=== PATIENT | male | born 1940 | race Caucasian/White ===

== ENCOUNTER 2022-09-02 13:42 | Inpatient (IN) | payer BC ==
[~2022-09-02] VITALS: Ht 170.2 cm; Wt 56.9 kg
[2022-09-02 14:46] LABS: Basophils # (auto) 0.1 10 ^3/uL (0-0.2); Basophils % (auto) 1.1 % (0.0-2.0); Eosinophils # (auto) 0.2 10 ^3/uL (0-0.8); Eosinophils % (auto) 1.9 % (0.0-7.0); Lymphocytes # (auto) 1.7 10 ^3/uL (0.4-5.4); Lymphocytes % (auto) 19.4 % (10.0-50.0); Monocytes # (auto) 0.7 10 ^3/uL (0-1.3); Nucleated Red Blood Cells % 0.1 %
[2022-09-02 14:48] LABS: Hematocrit 35.9 % (41.0-53.0); Hemoglobin 11.8 g/dL (13.5-17.5); Mean Corpuscular Hemoglobin 26.6 pg (28.0-32.0); Mean Corpuscular Hgb Conc. 32.9 g/dL (32.0-36.0); Mean Corpuscular Volume 80.8 fL (80.0-100.0); Monocytes % (auto) 7.9 % (0.0-12.0); Neutrophils % (auto) 69.7 % (37.0-80.0); Red Blood Cells 4.44 10^6/uL (4.5-5.90); Red Cell Distribution Width 15.2 % (11.8-14.3); White Blood Cell 8.7 10^3/uL (4.4-10.8)
[2022-09-02 15:09] LABS: Albumin 2.9 g/dL (3.4-5.0); BUN/Creatinine Ratio 17.4 (10.0-20.0); Calcium 8.6 mg/dL (8.5-10.1); Potassium 3.9 mmol/L (3.5-5.1)
[2022-09-02 15:12] LABS: Bilirubin, Total 0.3 mg/dL (0.2-1.0); Total Protein 6.8 g/dL (6.4-8.2)
[2022-09-02 15:13] LABS: INR 0.99 (0.9-1.15); Partial Thromboplastin Time 29.1 sec (24.6-33.4)
[2022-09-02] MEDS ORDERED: ACETAMINOPHEN 325 MG TAB PO PRN (16:45)
[2022-09-02] MEDS ORDERED: ONDANSETRON HCL 4 MG/2 ML VIAL IV PRN (16:45)
[2022-09-02] MEDS ORDERED: MORPHINE SULFATE INJ 2 MG/ml SYRG IV PRN (16:45)
[2022-09-02] MEDS ORDERED: NITROGLYCERIN 0.4 MG SL TAB SL PRN (16:45)
[2022-09-02] MEDS ORDERED: ENOXAPARIN SOD 40 MG/0.4 ML SYRINGE SC ONE (17:00)
[2022-09-02] MEDS: SODIUM CHLORIDE 0.9% 1,000 ML IV SCH (18:34)
[2022-09-02] MEDS: HYDROcodone-ACET 5/325MG TAB PO PRN ×2 (18:34→23:16)
[2022-09-02 19:53] LABS: Urine Bacteria FEW /hpf (None Seen); Urine Blood Negative /uL (Negative); Urine WBC 5 /hpf (0 - 3)
[2022-09-02] MEDS: MORPHINE SULFATE INJ 2 MG/ml SYRG IV PRN (20:59)
[2022-09-03] MEDS: SODIUM CHLORIDE 0.9% 1,000 ML IV SCH ×3 (01:05→17:27)
[2022-09-03] MEDS: MORPHINE SULFATE INJ 2 MG/ml SYRG IV PRN ×3 (01:08→10:08)
[2022-09-03] MEDS ORDERED: HYDR-4072 (03:17)
[2022-09-03 05:00] VITALS: BP 122/51
[2022-09-03 08:00] VITALS: BP 120/96
[2022-09-03 08:43] VITALS: BP 120/96
[2022-09-03] MEDS ORDERED: ENOXAPARIN SOD 40 MG/0.4 ML SYRINGE SC SCH (10:00)
[2022-09-03] MEDS ORDERED: KETAMINE 50mg/ML 10ml Vial (500mg/10ml) IV ONE (11:19)
[2022-09-03] MEDS ORDERED: PHENYLEPHRINE HCL 10 MG/ML VL IV ONE (11:19)
[2022-09-03] MEDS ORDERED: EPINEPHrine HCL 1 MG/1 ML AMP ONE (12:23)
[2022-09-03] MEDS ORDERED: BUPIVACAINE 0.25% INJ 50ML VIAL ONE (12:23)
[2022-09-03] MEDS ORDERED: ceFAZolin 1GM/50ML 100 ML IV ONE (12:55)
[2022-09-03 13:00] VITALS: BP 145/72
[2022-09-03] MEDS ORDERED: ONDANSETRON HCL 4 MG/2 ML VIAL ONE (13:06)
[2022-09-03] MEDS ORDERED: LIDOCAINE 2% (LOCAL ANESTH.) PF 5ml SDV ONE (13:06)
[2022-09-03] MEDS ORDERED: SODIUM CHLORIDE LOCK 10 ML ONE (13:06)
[2022-09-03] MEDS ORDERED: KETOROLAC TROMETH 30 MG/ML 1ML VIAL ONE (13:06)
[2022-09-03] MEDS ORDERED: DexAMETHasone SOD PHOS 10MG/1ML VIAL INJ ONE ×2 (13:06→13:19)
[2022-09-03] MEDS ORDERED: GLYCOPYRROLATE 0.2 MG/ML 1ML VIAL ONE (13:06)
[2022-09-03] MEDS ORDERED: PROPOFOL 10 MG/ML 20 ML IV ONE ×2 (13:06→13:48)
[2022-09-03 16:26] VITALS: BP 125/54
[2022-09-03] MEDS: HYDROcodone-ACET 5/325MG TAB PO PRN ×2 (17:47→21:52)
[2022-09-03] MEDS: ceFAZolin 1GM/50ML 50 ML IV SCH (21:53)
[2022-09-03 22:00] VITALS: BP 110/58
[2022-09-04] MEDS: MORPHINE SULFATE INJ 2 MG/ml SYRG IV PRN (01:50)
[2022-09-04] MEDS: SODIUM CHLORIDE 0.9% 1,000 ML IV SCH (02:05)
[2022-09-04 05:00] VITALS: BP 123/54
[2022-09-04] MEDS: ceFAZolin 1GM/50ML 50 ML IV SCH (06:23)
[2022-09-04 09:00] VITALS: BP 141/72
[2022-09-04] MEDS: HYDROcodone-ACET 5/325MG TAB PO PRN (09:28)
== END 2022-09-04 11:20 | disposition left against medical advice (07) | DRG 481 ==
LOC: ER 13:42 → TELE 16:48 → TELE-WESTW 23:16
PROVIDERS: ADMIT Internal Medicine; ATTEND Internal Medicine
PROC: BQ10ZZZ Fluoroscopy of Right Hip (ICD-10-PCS; 2022-09-03)
PROC: 0QS634Z Reposition Right Upper Femur with Internal Fixation Device, Percutaneous Approach (ICD-10-PCS; principal; 2022-09-03 13:22)
DX: S72.141A Displaced intertrochanteric fracture of right femur, initial encounter for closed fracture (principal); E44.0 Moderate protein-calorie malnutrition; Z68.1 Body mass index [BMI] 19.9 or less, adult; W01.0XXA Fall on same level from slipping, tripping and stumbling without subsequent striking against object, initial encounter; Z93.1 Gastrostomy status; Z93.0 Tracheostomy status; Y93.89 Activity, other specified; Y92.098 Other place in other non-institutional residence as the place of occurrence of the external cause; Y99.8 Other external cause status; Z53.29 Procedure and treatment not carried out because of patient's decision for other reasons
CPT/HCPCS: 36415; 71045; 73502; 76000; 80053; 81001; 85025; 85610; 85730; 86850; 86900; 86901; 93005; 93306; 96372; 97163; G0378; J0171; J0690; J1100; J1885; J2001; J2405; J2704; J3490